=== PATIENT | female | born 1945 | race Two or more races ===

== ENCOUNTER 2019-04-02 21:19 | Emergency (ER) | payer OTHER ==
[2019-04-02 22:30] VITALS: BMI 28.0
[2019-04-02] MEDS ORDERED: morphine CARPU-JECT 4 MG/1 ML DISP.SYRIN IVPUSH ONE (22:58)
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
[2019-04-02] MEDS ORDERED: morphine SULFATE 4 MG/ML VIAL ONE (23:40)
[2019-04-02 23:57] LABS: HEMATOCRIT 41.4 % (32.4-45.2); HEMOGLOBIN 13.3 GM/dL (10.7-15.3); MCH 25.9 pg (25.7-33.7); MCHC 32.1 g/dl (32.0-36.0); MEAN CELL VOLUME 80.7 fl (80-96); RBC 5.13 M/mm3 (3.60-5.2); RDW 16.8 % (11.6-15.6)
[2019-04-03 00:13] LABS: INR 1.03 (0.83-1.09); PROTHROMBIN TIME (PATIENT) 12.1 SEC (9.7-13.0)
[2019-04-03 00:27] LABS: ALBUMIN 4.1 g/dl (3.4-5.0); BILIRUBIN,TOTAL 0.3 mg/dL (0.2-1); BLOOD UREA NITROGEN 16.4 mg/dL (7-18); CREATININE 0.8 mg/dL (0.55-1.3); POTASSIUM 4.9 mmol/L (3.5-5.1); TOT PROT 7.1 g/dl (6.4-8.2)
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
[2019-04-03 04:16] LABS: MEAN PLT VOLUME 9.6 fl (7.5-11.1)
[2019-04-03 04:17] LABS: PLATELET COUNT 634 K/MM3 (134-434)
[2019-04-03] MEDS ORDERED: ACETAMINOPHEN 1000 MG/100 ML VIAL (NON FORMULARY) IVPB ONE (04:40)
[2019-04-03] MEDS ORDERED: ACETAMINOPHEN INJECTION 100 ML IVPB ONE (04:41)
[2019-04-03 06:34] VITALS: BP 141/70; PULSE 54; TEMP 97.8
== END 2019-04-03 06:30 | disposition home or self-care (01) ==
LOC: JER 21:19
PROC: 3E033NZ Introduction of Analgesics, Hypnotics, Sedatives into Peripheral Vein, Percutaneous Approach (ICD-10-PCS; principal; 2019-04-02)
PROC: 3E033NZ Introduction of Analgesics, Hypnotics, Sedatives into Peripheral Vein, Percutaneous Approach (ICD-10-PCS; 2019-04-02)
DX: M54.2 Cervicalgia (principal); M25.512 Pain in left shoulder; M79.652 Pain in left thigh; M10.9 Gout, unspecified; V43.52XA Car driver injured in collision with other type car in traffic accident, initial encounter; Y92.414 Local residential or business street as the place of occurrence of the external cause; Y93.89 Activity, other specified; Y99.8 Other external cause status; L03.116 Cellulitis of left lower limb; Z79.2 Long term (current) use of antibiotics; R91.1 Solitary pulmonary nodule; D49.7 Neoplasm of unspecified behavior of endocrine glands and other parts of nervous system
CPT/HCPCS: 36415; 70450-TC; 71260-TC; 72125-TC; 73030-TC-LT-FY; 73552-TC-LT-FY; 74177-TC; 80053; 85027; 85610; 99284-25; J0131; Q9967

== ENCOUNTER 2021-09-24 17:06 | Emergency (ER) | payer OTHER ==
[2021-09-24 17:40] VITALS: BP 159/81; PULSE 64; TEMP 98; BMI 27.3
== END 2021-09-24 19:30 | disposition left against medical advice (07) ==
LOC: JER 17:06
DX: R60.0 Localized edema (principal)
CPT/HCPCS: 99281-25

== ENCOUNTER 2022-11-13 20:55 | Observation (INO) | payer OTHER ==
[2022-11-13 20:58] VITALS: BMI 26.5
[2022-11-13] MEDS ORDERED: FAMOTIDINE 20 MG/50 ML IVPB 20 MG/50 ML MG IVPB ONE ×2 (21:50→22:23)
[2022-11-13] MEDS ORDERED: ACETAMINOPHEN 1000 MG/100 ML BAG IVPB ONE (21:50)
[2022-11-13] MEDS ORDERED: MAG HYDROX/AL HYDROX/SIMETH 30 ML UNIT-DOSE CUP PO ONE (21:50)
[2022-11-13] MEDS ORDERED: ASPIRIN 81 MG CHEWABLE TABLETS PO ONE (21:55)
[2022-11-13] MEDS ORDERED: ACETAMINOPHEN INJECTION 100 ML IVPB ONE (22:23)
[2022-11-13] MEDS ORDERED: MAG HYDROX/AL HYDROX/SIMETH 30 ML UNIT-DOSE CUP ONE (22:23)
[2022-11-13] MEDS ORDERED: ASPIRIN 81 MG CHEWABLE TABLETS ONE (22:23)
[2022-11-13 22:36] LABS: HEMATOCRIT 36.1 % (32.4-45.2); HEMOGLOBIN 11.8 GM/dL (10.7-15.3); MCH 25.8 pg (25.7-33.7); MCHC 32.7 g/dl (32.0-36.0); MEAN CELL VOLUME 78.9 fl (80-96); MEAN PLT VOLUME 8.8 fl (7.5-11.1); PLATELET COUNT 946 10^3/uL (134-434); RBC 4.58 M/mm3 (3.60-5.2); RDW 17.3 % (11.6-15.6); WHITE BLOOD COUNT 11.7 K/mm3 (4.0-10.0)
[2022-11-13 22:43] LABS: INR 1.14 (0.83-1.09); PROTHROMBIN TIME (PATIENT) 13.2 SEC (9.7-13.0)
[2022-11-13 22:45] LABS: ACTIVATED PTT 35.9 SECONDS (25.2-36.5)
[2022-11-13 23:09] LABS: POTASSIUM 5.2 mmol/L (3.5-5.1)
[2022-11-13 23:10] LABS: CALCIUM 9.3 mg/dL (8.5-10.1)
[2022-11-13 23:12] LABS: ALBUMIN 3.7 g/dl (3.4-5.0); BLOOD UREA NITROGEN 6.6 mg/dL (7-18); MAGNESIUM 1.8 mg/dL (1.8-2.4)
[2022-11-13 23:15] LABS: CREATININE 0.5 mg/dL (0.55-1.3)
[2022-11-13 23:16] LABS: BILIRUBIN,TOTAL 0.3 mg/dL (0.2-1); TOT PROT 6.5 g/dl (6.4-8.2)
[2022-11-13 23:18] LABS: ANISOCYTOSIS 2+; MACROCYTOSIS 1+
[2022-11-14] MEDS ORDERED: ZOLPIDEM TARTRATE 5 MG TABLET PO ONE (00:36)
[2022-11-14] MEDS ORDERED: ZOLPIDEM TARTRATE 5 MG TABLET ONE (00:36)
[2022-11-14 06:35] LABS: BASO % 0.8 % (0-2.0); EOS % 1.1 % (0-4.5); HEMATOCRIT 36.4 % (32.4-45.2); HEMOGLOBIN 12.4 GM/dL (10.7-15.3); LYMPH % 28.4 % (8-40); MCH 26.7 pg (25.7-33.7); MEAN CELL VOLUME 78.5 fl (80-96); MEAN PLT VOLUME 9.3 fl (7.5-11.1); MONO % 6.7 % (3.8-10.2); PLATELET COUNT 866 10^3/uL (134-434); RBC 4.64 M/mm3 (3.60-5.2); RDW 17.2 % (11.6-15.6); WHITE BLOOD COUNT 9.5 K/mm3 (4.0-10.0)
[2022-11-14 06:42] LABS: POTASSIUM 4.8 mmol/L (3.5-5.1)
[2022-11-14 06:45] LABS: BLOOD UREA NITROGEN 5.8 mg/dL (7-18); CALCIUM 9.2 mg/dL (8.5-10.1); MAGNESIUM 1.9 mg/dL (1.8-2.4)
[2022-11-14 06:48] LABS: CREATININE 0.4 mg/dL (0.55-1.3)
[2022-11-14] MEDS ORDERED: oxyCODONE HCL 5 MG TABLET PO PRN ×2 (08:54→16:41)
[2022-11-14] MEDS ORDERED: ASPIRIN 81 MG CHEWABLE TABLETS ONE (09:22)
[2022-11-14] MEDS ORDERED: ACETAMINOPHEN 325 MG TABLET (FP) ONE (09:22)
[2022-11-14] MEDS ORDERED: oxyCODONE HCL 5 MG TABLET ONE (09:22)
[2022-11-14] MEDS: ACETAMINOPHEN 325 MG TABLET (FP) PO PRN ×2 (09:52→15:29)
[2022-11-14] MEDS ORDERED: ASPIRIN 81 MG CHEWABLE TABLETS PO SCH (10:00)
[2022-11-14] MEDS ORDERED: PANTOPRAZOLE 40 MG TABLET PO ONE ×2 (12:07→13:28)
[2022-11-14] MEDS ORDERED: PREGABALIN 50 MG CAPSULE ONE (13:27)
[2022-11-14] MEDS ORDERED: PREGABALIN 100 MG CAPSULE ONE (13:28)
[2022-11-14] MEDS ORDERED: PREGABALIN 75 MG CAPSULE PO SCH (14:00)
[2022-11-14] MEDS: DULoxetine HCL 30 MG CAPSULE.DR PO SCH (15:30)
[2022-11-14] MEDS ORDERED: ACETAMINOPHEN 325 MG TABLET (FP) PO PRN (16:41)
[2022-11-14] MEDS ORDERED: ZOLPIDEM TARTRATE 5 MG TABLET PO PRN (19:48)
[2022-11-14] MEDS: PREGABALIN 75 MG CAPSULE PO SCH ×2 (21:13→21:35)
[2022-11-15] MEDS: PREGABALIN 75 MG CAPSULE PO SCH (05:21)
[2022-11-15 06:40] VITALS: RESP 18
[2022-11-15] MEDS ORDERED: REGADENOSON 0.4 MG/5 ML PRE-FILLED SYRINGE IVPUSH ONE ×2 (09:41→10:15)
[2022-11-15] MEDS ORDERED: ASPIRIN 81 MG CHEWABLE TABLETS PO SCH (10:00)
[2022-11-15] MEDS: DULoxetine HCL 30 MG CAPSULE.DR PO SCH (13:06)
[2022-11-15 18:31] VITALS: BP 157/85; PULSE 64; TEMP 98.6
== END 2022-11-15 19:22 | disposition home or self-care (01) ==
LOC: JER 20:55 → JERBED 11-14 00:06 → J5S 11-14 13:56
PROVIDERS: ADMIT Internal Medicine; ATTEND Family Medicine
PROC: 3E033NZ Introduction of Analgesics, Hypnotics, Sedatives into Peripheral Vein, Percutaneous Approach (ICD-10-PCS; principal; 2022-11-14)
PROC: 3E033GC Introduction of Other Therapeutic Substance into Peripheral Vein, Percutaneous Approach (ICD-10-PCS; 2022-11-14)
DX: R41.9 Unspecified symptoms and signs involving cognitive functions and awareness (principal); R07.9 Chest pain, unspecified; Z87.891 Personal history of nicotine dependence; D75.839 Thrombocytosis, unspecified; K21.9 Gastro-esophageal reflux disease without esophagitis; K59.00 Constipation, unspecified
CPT/HCPCS: 0241U-QW; 36415; 71046-TC-FY; 78452-TC; 80048; 80053; 83735; 84443; 84484; 85025; 85610; 85730; 93005; 93010; 93017; 93306-TC; 96365; 96375; 97116-GP; 97161-GP; 99285-25; A9502; G0378; J2785

== ENCOUNTER → 2025-01-29 | Day surgery (SDC) | payer OTHER | END | disposition home or self-care (01) | LOC: JMAMMO-SUR 11:23 | PROVIDERS: ATTEND Family Medicine | PROC: 0H9U3ZX Drainage of Left Breast, Percutaneous Approach, Diagnostic (ICD-10-PCS; principal; 2025-01-29) | DX: N60.12 Diffuse cystic mastopathy of left breast (principal) | CPT/HCPCS: 19083; 76942-TC; 77065-TC; 87899; 88305-TC; A4648 ==